=== PATIENT | male | born 1980 | race Caucasian/White ===

== ENCOUNTER 2018-06-02 16:10 | Inpatient (IN) | payer MEDICAID ==
[2018-06-02] MEDS: CEFTRIAXONE 1 GM/50 ML (PMX) 50 ML IVPB (17:09)
[2018-06-02] MEDS: SODIUM CHLORIDE 0.9% 1L BAG IV* (17:10)
[2018-06-02] MEDS: ACETAMINOPHEN 500 MG TAB PO (17:10)
[2018-06-02 17:15] LABS: ADD MAN DIFF? NO
[2018-06-02 17:19] LABS: BASOPHILS % 0.3 % (0.0-2.0); HEMATOCRIT 41.9 % (42.0-52.0); HEMOGLOBIN 12.8 g/dl (14.0-18.0); LYMPHOCYTES # 0.9 10^3/ul (0.8-2.9); LYMPHOCYTES % 8.2 % (15.0-51.0); MEAN CORPUSCULAR HEMOGLOBIN 27.1 pg (29.0-33.0); MEAN CORPUSCULAR HGB CONC 30.5 g/dl (32.0-37.0); MEAN CORPUSCULAR VOLUME 88.6 fl (82.0-101.0); MEAN PLATELET VOLUME 10.4 fl (7.4-10.4); MONOCYTE # 0.8 10^3/ul (0.3-0.9); MONOCYTES % 7.3 % (0.0-11.0); NEUTROPHIL # 8.8 10^3/ul (1.6-7.5); NEUTROPHILS % 83.1 % (39.0-77.0); PLATELET COUNT 170 10^3/UL (140-415); RED BLOOD COUNT 4.73 10^6/ul (4.70-6.10); RED CELL DISTRIBUTION WIDTH 16.6 % (11.5-14.5)
[2018-06-02 17:19] LABS: WHITE BLOOD COUNT 10.6 10^3/ul (4.8-10.8)
[2018-06-02 17:39] LABS: LACTIC ACID 1.8 mmol/L (0.5-2.0)
[2018-06-02 17:40] LABS: INR 1.53; PROTIME 18.5 Sec (11.9-14.9); PT RATIO 1.4
[2018-06-02 17:41] LABS: PARTIAL THROMBOPLASTIN TIME 37.6 Sec (23.0-35.0)
[2018-06-02 17:42] LABS: ALANINE AMINOTRANSFERASE 22 IU/L (13-69); ALKALINE PHOSPHATASE 51 IU/L (42-121); ANION GAP 9 (5-13); ASPARTATE AMINO TRANSFERASE 25 IU/L (15-46); BILIRUBIN,INDIRECT 0.4 mg/dl (0-1.1); BILIRUBIN,TOTAL 0.4 mg/dl (0.2-1.3); BLOOD UREA NITROGEN 18 mg/dl (7-20); CALCIUM 8.7 mg/dl (8.4-10.2); CARBON DIOXIDE 32 mmol/L (21-31); CHLORIDE 93 mmol/L (97-110); CREATININE 1.18 mg/dl (0.61-1.24); Estimated GFR > 60 mL/min (>60); GLUCOSE 116 mg/dl (70-220); POTASSIUM 4.6 mmol/L (3.5-5.1); SODIUM 134 mmol/L (135-144)
[2018-06-02] MEDS: AZITHROMYCIN 500MG/NS (PMX) 250 ML IV (17:47)
[2018-06-02 17:53] LABS: TROPONIN-I 0.025 ng/ml (0.000-0.120)
[2018-06-02 17:57] LABS: AADO2 Arterial 83.9 mmHg (7.0-24.0); Allen Test ACCEPTAB; Arterial Base Excess 3.8 mmol/L (-3.0-3); Arterial Blood Gas Oxygen Sat 91.3 mmHG (95.0-98.0); Arterial COHb 1.5 % (0.0-3.0); Arterial Fraction of Oxyhgb 89.7 % (93.0-99.0); Arterial HCO3 30.8 mmol/L (22.0-26.0); Arterial MetHb 0.2 % (0.0-1.5); Arterial pCO2 56.8 mmhg (35-45); Blood Gas IEPAP 20/8; Blood Gas PS 15; MODE MASK - BIPAP; Site Right Radial
[2018-06-02] MEDS ORDERED: ACETAMINOPHEN 325 MG TAB PO (18:30)
[2018-06-02] MEDS ORDERED: ONDANSETRON 4 MG INJ IV ×2 (18:30→19:00)
[2018-06-02] MEDS ORDERED: ALBUTEROL/IPRATROPIUM (NEB) 3 ML AMP HHN (19:00)
[2018-06-02] MEDS ORDERED: NACL 0.9% 3 ML SYG IV (19:00)
[2018-06-02] MEDS ORDERED: LORAZEPAM 2 MG INJ IV (19:30)
[2018-06-02 20:34] LABS: PARTIAL THROMBOPLASTIN TIME 38.8 Sec (23.0-35.0)
[2018-06-02] MEDS: NICOTINE (21 MG/24 HR) PATCH TRANSDERM (22:04)
[2018-06-02 22:31] LABS: LACTIC ACID 1.2 mmol/L (0.5-2.0)
[2018-06-03] MEDS: HEPARIN 5,000 UNIT/1 ML VIAL SC ×4 (03:30→21:30)
[2018-06-03] MEDS: PANTOPRAZOLE 40 MG INJ IV (05:10)
[2018-06-03] MEDS: ACETYLCYSTEINE 20% 4 ML VIAL NEB ×5 (06:08→19:58)
[2018-06-03 08:42] LABS: ADD MAN DIFF? NO
[2018-06-03 08:45] LABS: WHITE BLOOD COUNT 9.4 10^3/ul (4.8-10.8)
[2018-06-03 08:45] LABS: ABNORMAL IP MESSAGE 1; BASOPHILS % 0.2 % (0.0-2.0); EOSINOPHILS % 0.1 % (0.0-7.0); HEMATOCRIT 39.3 % (42.0-52.0); LYMPHOCYTES # 0.6 10^3/ul (0.8-2.9); LYMPHOCYTES % 6.2 % (15.0-51.0); MEAN CORPUSCULAR HEMOGLOBIN 27.1 pg (29.0-33.0); MEAN CORPUSCULAR HGB CONC 30.5 g/dl (32.0-37.0); MEAN CORPUSCULAR VOLUME 88.9 fl (82.0-101.0); MEAN PLATELET VOLUME 10.5 fl (7.4-10.4); MONOCYTE # 0.7 10^3/ul (0.3-0.9); MONOCYTES % 7.4 % (0.0-11.0); NEUTROPHILS % 85.4 % (39.0-77.0); PLATELET COUNT 149 10^3/UL (140-415); POSITIVE DIFF @See below; RED BLOOD COUNT 4.42 10^6/ul (4.70-6.10); RED CELL DISTRIBUTION WIDTH 16.6 % (11.5-14.5)
[2018-06-03] MEDS: NICOTINE (21 MG/24 HR) PATCH TRANSDERM (08:55)
[2018-06-03 09:16] LABS: ALANINE AMINOTRANSFERASE 20 IU/L (13-69); ALBUMIN 3.6 g/dl (3.3-4.9); ALBUMIN/GLOBULIN RATIO 0.92; ALKALINE PHOSPHATASE 65 IU/L (42-121); ANION GAP 7 (5-13); ASPARTATE AMINO TRANSFERASE 23 IU/L (15-46); BILIRUBIN,INDIRECT 0.3 mg/dl (0-1.1); BILIRUBIN,TOTAL 0.3 mg/dl (0.2-1.3); BLOOD UREA NITROGEN 18 mg/dl (7-20); CALCIUM 8.3 mg/dl (8.4-10.2); CARBON DIOXIDE 30 mmol/L (21-31); CHLORIDE 99 mmol/L (97-110); CHOL/HDL RATIO 5.2 RATIO; CHOLESTEROL 104 mg/dl (100-200); CREATININE 0.94 mg/dl (0.61-1.24); Estimated GFR > 60 mL/min (>60); GLUCOSE 102 mg/dl (70-220); HDL CHOLESTEROL 20 mg/dl (28-63); LDL CHOLESTEROL,CALCULATED 61 mg/dl; PHOSPHORUS 2.6 mg/dl (2.5-4.9); POTASSIUM 4.4 mmol/L (3.5-5.1); SODIUM 136 mmol/L (135-144); TOTAL PROTEIN 7.5 g/dl (6.1-8.1); TRIGLYCERIDES 116 mg/dl (0-149)
[2018-06-03] MEDS: CEFTRIAXONE 1 GM/50 ML (PMX) 50 ML IVPB (12:02)
[2018-06-03] MEDS: ALBUTEROL/IPRATROPIUM (NEB) 3 ML AMP HHN ×2 (13:24→19:58)
[2018-06-03] MEDS: AZITHROMYCIN 500MG/NS (PMX) 250 ML IVPB (14:27)
[2018-06-03] MEDS: METHYLPREDNISOLONE 40 MG INJ IV ×2 (14:52→21:22)
[2018-06-03] MEDS: ACETAMINOPHEN 325 MG TAB PO (18:01)
[2018-06-04] MEDS: LEVALBUTEROL (NEB) 0.63 MG/3 ML AMP HHN ×4 (01:30→20:03)
[2018-06-04] MEDS: ACETYLCYSTEINE 20% 4 ML VIAL NEB ×4 (01:30→20:04)
[2018-06-04] MEDS: IPRATROPIUM (NEB) 0.5 MG/2.5 ML AMP HHN ×4 (01:30→20:03)
[2018-06-04] MEDS: PANTOPRAZOLE 40 MG INJ IV (05:19)
[2018-06-04] MEDS: METHYLPREDNISOLONE 40 MG INJ IV ×3 (05:20→21:23)
[2018-06-04] MEDS: HEPARIN 5,000 UNIT/1 ML VIAL SC ×3 (05:26→21:29)
[2018-06-04 06:29] LABS: Allen Test ACCEPTAB; Arterial Base Excess 1.9 mmol/L (-3.0-3); Arterial COHb 0.5 % (0.0-3.0); Arterial Fraction of Oxyhgb 97.4 % (93.0-99.0); Arterial HCO3 31.3 mmol/L (22.0-26.0); Arterial MetHb 0.1 % (0.0-1.5); Arterial pCO2 73.1 mmhg (35-45); Blood Gas PS 15; MODE MASK - BIPAP; Site Right Radial
[2018-06-04] MEDS: NICOTINE (21 MG/24 HR) PATCH TRANSDERM (08:45)
[2018-06-04 10:00] LABS: AADO2 Arterial 214.5 mmHg (7.0-24.0); Allen Test ACCEPTAB; Arterial Base Excess 4.9 mmol/L (-3.0-3); Arterial Blood Gas Oxygen Sat 92.9 mmHG (95.0-98.0); Arterial COHb 0.4 % (0.0-3.0); Arterial Fraction of Oxyhgb 92.4 % (93.0-99.0); Arterial MetHb 0.1 % (0.0-1.5); Blood Gas IEPAP 24/8; Blood Gas PS 16; MODE MASK - BIPAP; Site Right Radial
[2018-06-04 10:18] LABS: ADD MAN DIFF? NO
[2018-06-04 10:37] LABS: ANION GAP 8 (5-13); BLOOD UREA NITROGEN 17 mg/dl (7-20); CARBON DIOXIDE 32 mmol/L (21-31); CHLORIDE 99 mmol/L (97-110); CREATININE 0.84 mg/dl (0.61-1.24); Estimated GFR > 60 mL/min (>60); GLUCOSE 139 mg/dl (70-220); MAGNESIUM 2.6 mg/dl (1.7-2.5); PHOSPHORUS 3.6 mg/dl (2.5-4.9); POTASSIUM 4.8 mmol/L (3.5-5.1); SODIUM 139 mmol/L (135-144)
[2018-06-04 10:44] LABS: ABNORMAL IP MESSAGE 1; BASOPHILS % 0.3 % (0.0-2.0); HEMATOCRIT 43.3 % (42.0-52.0); HEMOGLOBIN 13.1 g/dl (14.0-18.0); LYMPHOCYTES # 0.5 10^3/ul (0.8-2.9); LYMPHOCYTES % 5.4 % (15.0-51.0); MEAN CORPUSCULAR HEMOGLOBIN 27.1 pg (29.0-33.0); MEAN CORPUSCULAR HGB CONC 30.3 g/dl (32.0-37.0); MEAN CORPUSCULAR VOLUME 89.6 fl (82.0-101.0); MEAN PLATELET VOLUME 10.5 fl (7.4-10.4); MONOCYTE # 0.3 10^3/ul (0.3-0.9); MONOCYTES % 3.4 % (0.0-11.0); NEUTROPHIL # 8.7 10^3/ul (1.6-7.5); NEUTROPHILS % 89.7 % (39.0-77.0); PLATELET COUNT 177 10^3/UL (140-415); POSITIVE DIFF @See below; RED BLOOD COUNT 4.83 10^6/ul (4.70-6.10); RED CELL DISTRIBUTION WIDTH 16.4 % (11.5-14.5)
[2018-06-04 10:44] LABS: WHITE BLOOD COUNT 9.7 10^3/ul (4.8-10.8)
[2018-06-04] MEDS: CEFTRIAXONE 1 GM/50 ML (PMX) 50 ML IVPB (11:15)
[2018-06-04] MEDS: AZITHROMYCIN 500MG/NS (PMX) 250 ML IVPB (13:15)
[2018-06-05] MEDS: IPRATROPIUM (NEB) 0.5 MG/2.5 ML AMP HHN ×4 (01:07→19:34)
[2018-06-05] MEDS: LEVALBUTEROL (NEB) 0.63 MG/3 ML AMP HHN ×4 (01:07→19:34)
[2018-06-05] MEDS: ACETYLCYSTEINE 20% 4 ML VIAL NEB ×4 (01:08→19:34)
[2018-06-05] MEDS: PANTOPRAZOLE 40 MG INJ IV (05:36)
[2018-06-05] MEDS: METHYLPREDNISOLONE 40 MG INJ IV ×3 (05:36→21:00)
[2018-06-05] MEDS: HEPARIN 5,000 UNIT/1 ML VIAL SC ×3 (05:41→21:03)
[2018-06-05 05:46] LABS: ADD MAN DIFF? NO
[2018-06-05 05:48] LABS: BASOPHILS % 0.1 % (0.0-2.0); HEMATOCRIT 41.4 % (42.0-52.0); HEMOGLOBIN 12.7 g/dl (14.0-18.0); LYMPHOCYTES # 0.9 10^3/ul (0.8-2.9); LYMPHOCYTES % 8.7 % (15.0-51.0); MEAN CORPUSCULAR HGB CONC 30.7 g/dl (32.0-37.0); MEAN CORPUSCULAR VOLUME 88.1 fl (82.0-101.0); MONOCYTE # 0.5 10^3/ul (0.3-0.9); MONOCYTES % 4.7 % (0.0-11.0); NEUTROPHIL # 8.4 10^3/ul (1.6-7.5); NEUTROPHILS % 85.3 % (39.0-77.0); NUCLEATED RED BLOOD CELLS% 0.2 /100WBC (0.0-0.0); PLATELET COUNT 213 10^3/UL (140-415); RED CELL DISTRIBUTION WIDTH 16.3 % (11.5-14.5)
[2018-06-05 05:48] LABS: WHITE BLOOD COUNT 9.9 10^3/ul (4.8-10.8)
[2018-06-05 06:15] LABS: ANION GAP 7 (5-13); BLOOD UREA NITROGEN 26 mg/dl (7-20); CALCIUM 9.2 mg/dl (8.4-10.2); CARBON DIOXIDE 35 mmol/L (21-31); CHLORIDE 98 mmol/L (97-110); Estimated GFR > 60 mL/min (>60); GLUCOSE 130 mg/dl (70-220); MAGNESIUM 2.6 mg/dl (1.7-2.5); PHOSPHORUS 3.8 mg/dl (2.5-4.9); POTASSIUM 4.5 mmol/L (3.5-5.1); SODIUM 140 mmol/L (135-144)
[2018-06-05 07:52] LABS: AADO2 Arterial 205.1 mmHg (7.0-24.0); Allen Test ACCEPTAB; Arterial Base Excess 3.9 mmol/L (-3.0-3); Arterial Blood Gas Oxygen Sat 97.3 mmHG (95.0-98.0); Arterial COHb 0.3 % (0.0-3.0); Arterial Fraction of Oxyhgb 96.9 % (93.0-99.0); Arterial HCO3 29.6 mmol/L (22.0-26.0); Arterial MetHb 0.1 % (0.0-1.5); Arterial pCO2 48.9 mmhg (35-45); Blood Gas IEPAP 24/8; Blood Gas PS 16; MODE MASK - BIPAP; Site Right Radial
[2018-06-05] MEDS: NICOTINE (21 MG/24 HR) PATCH TRANSDERM (10:43)
[2018-06-05] MEDS: FUROSEMIDE 20 MG INJ IV ×2 (10:45→18:53)
[2018-06-05] MEDS: CEFTRIAXONE 1 GM/50 ML (PMX) 50 ML IVPB (11:43)
[2018-06-05] MEDS: AZITHROMYCIN 500MG/NS (PMX) 250 ML IVPB (12:32)
[2018-06-06] MEDS: IPRATROPIUM (NEB) 0.5 MG/2.5 ML AMP HHN ×4 (01:34→19:31)
[2018-06-06] MEDS: ACETYLCYSTEINE 20% 4 ML VIAL NEB ×4 (01:34→19:31)
[2018-06-06] MEDS: LEVALBUTEROL (NEB) 0.63 MG/3 ML AMP HHN ×4 (01:34→19:31)
[2018-06-06] MEDS: FUROSEMIDE 20 MG INJ IV ×2 (06:10→18:28)
[2018-06-06] MEDS: METHYLPREDNISOLONE 40 MG INJ IV ×3 (06:10→21:16)
[2018-06-06] MEDS: PANTOPRAZOLE 40 MG INJ IV (06:10)
[2018-06-06 06:23] LABS: AADO2 Arterial 205.6 mmHg (7.0-24.0); Allen Test ACCEPTAB; Arterial Base Excess 4.9 mmol/L (-3.0-3); Arterial Blood Gas Oxygen Sat 96.2 mmHG (95.0-98.0); Arterial COHb 0.3 % (0.0-3.0); Arterial Fraction of Oxyhgb 95.9 % (93.0-99.0); Arterial HCO3 31.3 mmol/L (22.0-26.0); Arterial MetHb 0 % (0.0-1.5); Arterial pCO2 53.3 mmhg (35-45); Blood Gas IEPAP 24/8; MODE MASK - BIPAP; Site Right Radial
[2018-06-06] MEDS: HEPARIN 5,000 UNIT/1 ML VIAL SC ×3 (06:23→21:37)
[2018-06-06 06:24] LABS: ADD MAN DIFF? NO
[2018-06-06 06:31] LABS: BASOPHILS % 0.1 % (0.0-2.0); HEMATOCRIT 41.6 % (42.0-52.0); HEMOGLOBIN 12.7 g/dl (14.0-18.0); LYMPHOCYTES # 1.1 10^3/ul (0.8-2.9); LYMPHOCYTES % 12.3 % (15.0-51.0); MEAN CORPUSCULAR HEMOGLOBIN 26.8 pg (29.0-33.0); MEAN CORPUSCULAR HGB CONC 30.5 g/dl (32.0-37.0); MEAN CORPUSCULAR VOLUME 87.9 fl (82.0-101.0); MEAN PLATELET VOLUME 10.6 fl (7.4-10.4); MONOCYTE # 0.6 10^3/ul (0.3-0.9); NEUTROPHIL # 6.9 10^3/ul (1.6-7.5); NEUTROPHILS % 78.8 % (39.0-77.0); NUCLEATED RED BLOOD CELLS% 0.2 /100WBC (0.0-0.0); PLATELET COUNT 219 10^3/UL (140-415); RED BLOOD COUNT 4.73 10^6/ul (4.70-6.10); RED CELL DISTRIBUTION WIDTH 16.4 % (11.5-14.5)
[2018-06-06 06:31] LABS: WHITE BLOOD COUNT 8.8 10^3/ul (4.8-10.8)
[2018-06-06 06:44] LABS: ANION GAP 9 (5-13); BLOOD UREA NITROGEN 33 mg/dl (7-20); CALCIUM 9.2 mg/dl (8.4-10.2); CARBON DIOXIDE 32 mmol/L (21-31); CHLORIDE 100 mmol/L (97-110); CREATININE 0.93 mg/dl (0.61-1.24); Estimated GFR > 60 mL/min (>60); GLUCOSE 113 mg/dl (70-220); POTASSIUM 4.8 mmol/L (3.5-5.1); SODIUM 141 mmol/L (135-144)
[2018-06-06] MEDS: NICOTINE (21 MG/24 HR) PATCH TRANSDERM (09:05)
[2018-06-06] MEDS: AZITHROMYCIN 500MG/NS (PMX) 250 ML IVPB (12:10)
[2018-06-06] MEDS: CEFTRIAXONE 1 GM/50 ML (PMX) 50 ML IVPB (12:10)
[2018-06-07] MEDS: IPRATROPIUM (NEB) 0.5 MG/2.5 ML AMP HHN ×4 (02:14→20:11)
[2018-06-07] MEDS: LEVALBUTEROL (NEB) 0.63 MG/3 ML AMP HHN ×4 (02:14→20:11)
[2018-06-07] MEDS: ACETYLCYSTEINE 20% 4 ML VIAL NEB ×4 (02:14→20:11)
[2018-06-07] MEDS: PANTOPRAZOLE 40 MG INJ IV (05:00)
[2018-06-07] MEDS: METHYLPREDNISOLONE 40 MG INJ IV ×2 (05:00→21:07)
[2018-06-07] MEDS: FUROSEMIDE 20 MG INJ IV ×2 (05:01→17:31)
[2018-06-07] MEDS: HEPARIN 5,000 UNIT/1 ML VIAL SC ×3 (05:07→21:19)
[2018-06-07] MEDS: NICOTINE (21 MG/24 HR) PATCH TRANSDERM (08:36)
[2018-06-08] MEDS: IPRATROPIUM (NEB) 0.5 MG/2.5 ML AMP HHN ×4 (01:33→20:35)
[2018-06-08] MEDS: ACETYLCYSTEINE 20% 4 ML VIAL NEB ×4 (01:33→20:35)
[2018-06-08] MEDS: LEVALBUTEROL (NEB) 0.63 MG/3 ML AMP HHN ×4 (01:33→20:35)
[2018-06-08] MEDS: PANTOPRAZOLE 40 MG INJ IV (05:28)
[2018-06-08] MEDS: HEPARIN 5,000 UNIT/1 ML VIAL SC ×3 (05:35→21:39)
[2018-06-08 07:07] LABS: ABNORMAL IP MESSAGE 1; HEMATOCRIT 48.3 % (42.0-52.0); HEMOGLOBIN 14.9 g/dl (14.0-18.0); MEAN CORPUSCULAR HEMOGLOBIN 26.6 pg (29.0-33.0); MEAN CORPUSCULAR HGB CONC 30.8 g/dl (32.0-37.0); MEAN CORPUSCULAR VOLUME 86.3 fl (82.0-101.0); MEAN PLATELET VOLUME 10.7 fl (7.4-10.4); PLATELET COUNT 275 10^3/UL (140-415); POSITIVE DIFF @See below; RED CELL DISTRIBUTION WIDTH 16.4 % (11.5-14.5)
[2018-06-08 07:07] LABS: WHITE BLOOD COUNT 11.5 10^3/ul (4.8-10.8)
[2018-06-08 07:17] LABS: ADD MAN DIFF? YES
[2018-06-08 07:29] LABS: PHOSPHORUS 4.9 mg/dl (2.5-4.9)
[2018-06-08 07:29] LABS: MAGNESIUM 2.3 mg/dl (1.7-2.5)
[2018-06-08 07:35] LABS: ANION GAP 7 (5-13); BLOOD UREA NITROGEN 34 mg/dl (7-20); CALCIUM 9.1 mg/dl (8.4-10.2); CARBON DIOXIDE 32 mmol/L (21-31); CHLORIDE 98 mmol/L (97-110); CREATININE 0.87 mg/dl (0.61-1.24); Estimated GFR > 60 mL/min (>60); GLUCOSE 105 mg/dl (70-220); POTASSIUM 4.5 mmol/L (3.5-5.1); SODIUM 137 mmol/L (135-144)
[2018-06-08] MEDS: predniSONE 20 MG TAB PO (08:45)
[2018-06-08] MEDS: NICOTINE (21 MG/24 HR) PATCH TRANSDERM (08:45)
[2018-06-08] MEDS: FUROSEMIDE 20 MG TAB PO (08:45)
[2018-06-08 10:01] LABS: BAND NEUTROPHILS #M 0.3 10^3/ul (0.0-0.6); BAND NEUTROPHILS % (M) 3 % (0-4); ERYTHROBLAST% (NRBC) (M) 1 % (0-0); GIANT THROMBO% (M) 1 % (0-0); LYMPHOCYTES #M 1.7 10^3/ul (0.8-2.9); LYMPHOCYTES % (M) 15 % (15-51); METAMYELOCYTES #M 0.2 10^3/ul (0.0-0.0); METAMYELOCYTES %M 2 % (0-0); MONOCYTE #M 0.4 10^3/ul (0.3-0.9); MONOCYTES % (M) 4 % (0-11); MYELOCYTES #M 0.5 10^3/ul (0.0-0.0); MYELOCYTES % (M) 5 % (0-0); PLATELET ESTIMATE NORMAL; POIKILOCYTOSIS 1+ (0-0); REACTIVE LYMPHOCYTES #M 0.1 10^3/ul (0.0-0.0); REACTIVE LYMPHOCYTES% (M) 1 % (0-0); SEG NEUT #M 8.1 10^3/ul (1.6-7.5); SEGMENTED NEUTROPHILS (M) % 70 % (39-77); SMUDGE%M 23 % (0-0)
[2018-06-09] MEDS: LEVALBUTEROL (NEB) 0.63 MG/3 ML AMP HHN ×4 (02:19→20:39)
[2018-06-09] MEDS: IPRATROPIUM (NEB) 0.5 MG/2.5 ML AMP HHN ×4 (02:19→20:39)
[2018-06-09] MEDS: ACETYLCYSTEINE 20% 4 ML VIAL NEB ×4 (02:23→20:39)
[2018-06-09] MEDS: PANTOPRAZOLE (EC) 40 MG TAB PO (05:12)
[2018-06-09] MEDS: HEPARIN 5,000 UNIT/1 ML VIAL SC ×3 (05:17→21:33)
[2018-06-09] MEDS: predniSONE 20 MG TAB PO (09:33)
[2018-06-09] MEDS: FUROSEMIDE 20 MG TAB PO (09:33)
[2018-06-09] MEDS: NICOTINE (21 MG/24 HR) PATCH TRANSDERM (09:33)
[2018-06-10] MEDS: ACETYLCYSTEINE 20% 4 ML VIAL NEB ×4 (01:52→20:00)
[2018-06-10] MEDS: LEVALBUTEROL (NEB) 0.63 MG/3 ML AMP HHN ×4 (01:52→20:00)
[2018-06-10] MEDS: IPRATROPIUM (NEB) 0.5 MG/2.5 ML AMP HHN ×4 (01:52→20:00)
[2018-06-10] MEDS: PANTOPRAZOLE (EC) 40 MG TAB PO (05:26)
[2018-06-10] MEDS: HEPARIN 5,000 UNIT/1 ML VIAL SC ×3 (05:55→21:25)
[2018-06-10] MEDS: NICOTINE (21 MG/24 HR) PATCH TRANSDERM (10:11)
[2018-06-10] MEDS: FUROSEMIDE 20 MG TAB PO (10:12)
== END 2018-06-10 21:25 | disposition home or self-care (01) | DRG 189 ==
LOC: TEL 18:27 → ICU 06-04 10:19 → TEL 06-05 15:20 → E/R 16:10
PROC: 5A09557 Assistance with Respiratory Ventilation, Greater than 96 Consecutive Hours, Continuous Positive Airway Pressure (ICD-10-PCS; principal; 2018-06-02)
DX: J96.22 Acute and chronic respiratory failure with hypercapnia (principal); J18.9 Pneumonia, unspecified organism; J44.0 Chronic obstructive pulmonary disease with (acute) lower respiratory infection; E66.2 Morbid (severe) obesity with alveolar hypoventilation; Z68.43 Body mass index [BMI] 50.0-59.9, adult; E87.2 Acidosis; L03.115 Cellulitis of right lower limb; R78.81 Bacteremia; J96.21 Acute and chronic respiratory failure with hypoxia; I87.8 Other specified disorders of veins; R73.03 Prediabetes; Z72.0 Tobacco use; J20.9 Acute bronchitis, unspecified; B95.8 Unspecified staphylococcus as the cause of diseases classified elsewhere; G47.33 Obstructive sleep apnea (adult) (pediatric)
CPT/HCPCS: 36415; 36600; 71045; 71250; 73700; 80048; 80053; 80061; 82803; 83036; 83605; 83735; 84100; 84443; 84484; 85025; 85610; 85730; 87040-91; 87081; 87400; 93005; 93306; 93971; 94640; 94660; 94760; 96374; 96375; 97162; 99291-25

== ENCOUNTER 2018-06-13 21:08 | Inpatient (IN) | payer MEDICAID, OTHER ==
[2018-06-14] MEDS: SODIUM CHLORIDE 0.9% 1L BAG IV* (01:06)
[2018-06-14 01:21] LABS: ADD MAN DIFF? NO
[2018-06-14 01:23] LABS: BASOPHILS % 0.3 % (0.0-2.0); EOSINOPHILS # 0.1 10^3/ul (0.0-0.5); HEMATOCRIT 46.3 % (42.0-52.0); HEMOGLOBIN 14.3 g/dl (14.0-18.0); LYMPHOCYTES % 25.3 % (15.0-51.0); MEAN CORPUSCULAR HEMOGLOBIN 27.1 pg (29.0-33.0); MEAN CORPUSCULAR HGB CONC 30.9 g/dl (32.0-37.0); MEAN CORPUSCULAR VOLUME 87.9 fl (82.0-101.0); MEAN PLATELET VOLUME 11.3 fl (7.4-10.4); MONOCYTE # 0.7 10^3/ul (0.3-0.9); MONOCYTES % 9.5 % (0.0-11.0); NEUTROPHIL # 4.9 10^3/ul (1.6-7.5); NEUTROPHILS % 62.7 % (39.0-77.0); PLATELET COUNT 213 10^3/UL (140-415); RED BLOOD COUNT 5.27 10^6/ul (4.70-6.10); RED CELL DISTRIBUTION WIDTH 16.6 % (11.5-14.5)
[2018-06-14 01:23] LABS: WHITE BLOOD COUNT 7.8 10^3/ul (4.8-10.8)
[2018-06-14 01:29] LABS: ADD UMIC NO; UR ASCORBIC ACID NEGATIVE (NEGATIVE); UR BILIRUBIN (Dip) NEGATIVE (NEGATIVE); UR BLOOD (Dip) NEGATIVE (NEGATIVE); UR CLARITY SLIGHTLY CLOUDY (CLEAR); UR COLOR YELLOW (YELLOW); UR GLUCOSE (Dip) NEGATIVE (NEGATIVE); UR KETONES (Dip) NEGATIVE (NEGATIVE); UR LEUKOCYTE ESTERASE (Dip) NEGATIVE Leu/ul (NEGATIVE); UR NITRITE (Dip) NEGATIVE (NEGATIVE); UR RBC 0 /HPF (0-5); UR SPECIFIC GRAVITY (Dip) 1.025 (1.003-1.030); UR SQUAMOUS EPITHELIAL CELL FEW /HPF (FEW); UR TOTAL PROTEIN (Dip) NEGATIVE (NEGATIVE); UR UROBILINOGEN (Dip) 1+ mg/dL (NEGATIVE); UR WBC 1 /HPF (0-5)
[2018-06-14 01:42] LABS: ALANINE AMINOTRANSFERASE 50 IU/L (13-69); ALBUMIN/GLOBULIN RATIO 0.97; ALKALINE PHOSPHATASE 79 IU/L (42-121); ANION GAP 10 (5-13); ASPARTATE AMINO TRANSFERASE 23 IU/L (15-46); BILIRUBIN,INDIRECT 0.2 mg/dl (0-1.1); BILIRUBIN,TOTAL 0.2 mg/dl (0.2-1.3); BLOOD UREA NITROGEN 22 mg/dl (7-20); CARBON DIOXIDE 31 mmol/L (21-31); CHLORIDE 99 mmol/L (97-110); CREATININE 1.16 mg/dl (0.61-1.24); Estimated GFR > 60 mL/min (>60); GLUCOSE 109 mg/dl (70-220); INR 1.22; PARTIAL THROMBOPLASTIN TIME 29.7 Sec (23.0-35.0); PROTIME 15.5 Sec (11.9-14.9); PT RATIO 1.2; SODIUM 140 mmol/L (135-144); TOTAL PROTEIN 8.1 g/dl (6.1-8.1)
[2018-06-14 01:42] LABS: LACTIC ACID 1.1 mmol/L (0.5-2.0)
[2018-06-14 01:52] LABS: TROPONIN-I < 0.012 ng/ml (0.000-0.120)
[2018-06-14] MEDS: PIPER-TAZO 3.375 GM IV (PMX) 100 ML IVPB (02:47)
[2018-06-14] MEDS: VANCOMYCIN 1 GM (PMX) 250 ML IVPB (03:28)
[2018-06-14] MEDS ORDERED: NACL 0.9% 3 ML SYG IV (06:00)
[2018-06-14] MEDS ORDERED: VANCOMYCIN IV PER PHARMACY XX (06:00)
[2018-06-14] MEDS ORDERED: HYDROCODONE/APAP (5/325) TAB PO (06:00)
[2018-06-14] MEDS ORDERED: ONDANSETRON 4 MG INJ IV (06:00)
[2018-06-14] MEDS ORDERED: ACETAMINOPHEN 325 MG TAB PO (06:00)
[2018-06-14] MEDS ORDERED: ALBUTEROL/IPRATROPIUM (NEB) 3 ML AMP HHN (06:00)
[2018-06-14] MEDS: ENOXAPARIN 40 MG/0.4 ML SYG SC (08:09)
[2018-06-14] MEDS: FUROSEMIDE 20 MG TAB PO (08:10)
[2018-06-14] MEDS: CEFEPIME 1GM/50 ML (PMX) 50 ML IVPB (08:12)
[2018-06-14] MEDS: NICOTINE (21 MG/24 HR) PATCH TRANSDERM (08:12)
[2018-06-14] MEDS: VANCOMYCIN HCL 2 GM in SOD CHLORIDE 0.9% 500 ML IVPB (10:03)
[2018-06-14] MEDS: VANCOMYCIN HCL 1.5 GM in SOD CHLORIDE 0.9% 250 ML IVPB (20:02)
[2018-06-15] MEDS: CEFEPIME 1GM/50 ML (PMX) 50 ML IVPB (00:59)
[2018-06-15 07:33] LABS: ADD MAN DIFF? NO
[2018-06-15 07:43] LABS: BASOPHILS % 0.4 % (0.0-2.0); EOSINOPHILS # 0.1 10^3/ul (0.0-0.5); EOSINOPHILS % 1.7 % (0.0-7.0); HEMATOCRIT 44.7 % (42.0-52.0); HEMOGLOBIN 13.9 g/dl (14.0-18.0); LYMPHOCYTES # 1.1 10^3/ul (0.8-2.9); LYMPHOCYTES % 20.8 % (15.0-51.0); MEAN CORPUSCULAR HGB CONC 31.1 g/dl (32.0-37.0); MONOCYTE # 0.5 10^3/ul (0.3-0.9); MONOCYTES % 9.4 % (0.0-11.0); NEUTROPHIL # 3.6 10^3/ul (1.6-7.5); NEUTROPHILS % 67.1 % (39.0-77.0); PLATELET COUNT 193 10^3/UL (140-415); RED BLOOD COUNT 5.14 10^6/ul (4.70-6.10); RED CELL DISTRIBUTION WIDTH 16.3 % (11.5-14.5)
[2018-06-15 07:43] LABS: WHITE BLOOD COUNT 5.4 10^3/ul (4.8-10.8)
[2018-06-15] MEDS: VANCOMYCIN HCL 1.5 GM in SOD CHLORIDE 0.9% 250 ML IVPB ×2 (07:59→20:29)
[2018-06-15] MEDS: FUROSEMIDE 20 MG TAB PO (08:00)
[2018-06-15] MEDS: NICOTINE (21 MG/24 HR) PATCH TRANSDERM (08:00)
[2018-06-15] MEDS: ENOXAPARIN 40 MG/0.4 ML SYG SC (08:02)
[2018-06-15 08:03] LABS: PHOSPHORUS 4.4 mg/dl (2.5-4.9)
[2018-06-15 08:05] LABS: ALANINE AMINOTRANSFERASE 45 IU/L (13-69); ALBUMIN 3.6 g/dl (3.3-4.9); ALBUMIN/GLOBULIN RATIO 0.92; ALKALINE PHOSPHATASE 52 IU/L (42-121); ANION GAP 3 (5-13); ASPARTATE AMINO TRANSFERASE 20 IU/L (15-46); BILIRUBIN,INDIRECT 0.4 mg/dl (0-1.1); BILIRUBIN,TOTAL 0.4 mg/dl (0.2-1.3); BLOOD UREA NITROGEN 14 mg/dl (7-20); CARBON DIOXIDE 30 mmol/L (21-31); CHLORIDE 101 mmol/L (97-110); CREATININE 0.83 mg/dl (0.61-1.24); Estimated GFR > 60 mL/min (>60); GLUCOSE 85 mg/dl (70-220); POTASSIUM 4.2 mmol/L (3.5-5.1); SODIUM 134 mmol/L (135-144); TOTAL PROTEIN 7.5 g/dl (6.1-8.1)
[2018-06-15 08:53] LABS: ERYTHROCYTE SEDIMENTATION RATE 24 mm/Hr (0-15)
[2018-06-15] MEDS: CEFEPIME 2GM/50 ML IVPB (23:17)
[2018-06-16] MEDS: VANCOMYCIN HCL 1.5 GM in SOD CHLORIDE 0.9% 250 ML IVPB ×3 (05:47→23:01)
[2018-06-16 06:57] LABS: ADD MAN DIFF? NO
[2018-06-16] MEDS ORDERED: METOPROLOL 5 MG INJ (07:00)
[2018-06-16] MEDS ORDERED: SEVOFLURANE 15 MIN (07:00)
[2018-06-16 07:01] LABS: WHITE BLOOD COUNT 4.8 10^3/ul (4.8-10.8)
[2018-06-16 07:01] LABS: BASOPHILS % 0.2 % (0.0-2.0); EOSINOPHILS # 0.1 10^3/ul (0.0-0.5); EOSINOPHILS % 1.9 % (0.0-7.0); HEMATOCRIT 43.9 % (42.0-52.0); HEMOGLOBIN 13.7 g/dl (14.0-18.0); LYMPHOCYTES # 1.3 10^3/ul (0.8-2.9); LYMPHOCYTES % 26.5 % (15.0-51.0); MEAN CORPUSCULAR HEMOGLOBIN 27.1 pg (29.0-33.0); MEAN CORPUSCULAR HGB CONC 31.2 g/dl (32.0-37.0); MEAN CORPUSCULAR VOLUME 86.8 fl (82.0-101.0); MEAN PLATELET VOLUME 11.5 fl (7.4-10.4); MONOCYTE # 0.5 10^3/ul (0.3-0.9); MONOCYTES % 10.6 % (0.0-11.0); NEUTROPHIL # 2.9 10^3/ul (1.6-7.5); NEUTROPHILS % 60.2 % (39.0-77.0); PLATELET COUNT 176 10^3/UL (140-415); RED BLOOD COUNT 5.06 10^6/ul (4.70-6.10); RED CELL DISTRIBUTION WIDTH 16.3 % (11.5-14.5)
[2018-06-16 07:27] LABS: PHOSPHORUS 5.6 mg/dl (2.5-4.9)
[2018-06-16 07:36] LABS: ANION GAP 11 (5-13); BLOOD UREA NITROGEN 18 mg/dl (7-20); CALCIUM 9.1 mg/dl (8.4-10.2); CARBON DIOXIDE 28 mmol/L (21-31); CHLORIDE 102 mmol/L (97-110); CREATININE 0.85 mg/dl (0.61-1.24); Estimated GFR > 60 mL/min (>60); GLUCOSE 87 mg/dl (70-220); POTASSIUM 4.2 mmol/L (3.5-5.1); SODIUM 141 mmol/L (135-144)
[2018-06-16] MEDS: ENOXAPARIN 40 MG/0.4 ML SYG SC (09:00)
[2018-06-16] MEDS: FUROSEMIDE 20 MG TAB PO (09:00)
[2018-06-16] MEDS: CEFEPIME 2GM/50 ML IVPB ×2 (11:07→20:41)
[2018-06-16] MEDS: NICOTINE (21 MG/24 HR) PATCH TRANSDERM (11:07)
[2018-06-16] MEDS: POLYMYXIN B 500000 UNIT INJ (17:44)
[2018-06-16] MEDS: BACITRACIN 50000 UNITS INJ (17:44)
[2018-06-16] MEDS ORDERED: MIDAZOLAM 1 MG/ML 2 ML INJ ×2 (18:01→18:29)
[2018-06-16] MEDS ORDERED: ROPIVACAINE 0.5 % 30 ML VIAL (18:02)
[2018-06-16] MEDS ORDERED: KETAMINE (50 MG/ML) 10 ML VIAL (18:29)
[2018-06-16] MEDS ORDERED: hydrALAzine 20 MG INJ (18:48)
[2018-06-16] MEDS ORDERED: FENTAnyl 50 MCG/ML VIAL (18:54)
[2018-06-16] MEDS ORDERED: LIDOCAINE 2% (SDV) 5 ML INJ (18:58)
[2018-06-16] MEDS ORDERED: PROPOFOL 20 ML (18:58)
[2018-06-16] MEDS ORDERED: hydrALAzine 20 MG INJ IV (19:30)
[2018-06-16] MEDS ORDERED: MEPERIDINE 25 MG INJ IV (19:30)
[2018-06-16] MEDS ORDERED: ONDANSETRON 4 MG INJ IV (19:30)
[2018-06-16] MEDS ORDERED: FENTAnyl 50 MCG/ML VIAL IV (19:30)
[2018-06-16] MEDS ORDERED: HYDROmorphONE 1 MG/5 ML IV SYRINGE IV ×2 (19:30)
[2018-06-16] MEDS ORDERED: DIPHENHYDRAMINE 50 MG INJ IV (19:30)
[2018-06-16] MEDS ORDERED: LABETALOL HCL 20MG INJ IV (19:30)
[2018-06-16 22:37] LABS: VANCOMYCIN,TROUGH 15.2 ug/ml (10.0-20.0)
[2018-06-17] MEDS: VANCOMYCIN HCL 1.5 GM in SOD CHLORIDE 0.9% 250 ML IVPB ×3 (05:43→22:08)
[2018-06-17 06:02] LABS: ADD MAN DIFF? NO
[2018-06-17 06:10] LABS: WHITE BLOOD COUNT 5.4 10^3/ul (4.8-10.8)
[2018-06-17 06:10] LABS: BASOPHILS % 0.4 % (0.0-2.0); EOSINOPHILS # 0.1 10^3/ul (0.0-0.5); EOSINOPHILS % 1.5 % (0.0-7.0); HEMATOCRIT 43.2 % (42.0-52.0); LYMPHOCYTES # 1.2 10^3/ul (0.8-2.9); MEAN CORPUSCULAR HEMOGLOBIN 27.8 pg (29.0-33.0); MEAN CORPUSCULAR HGB CONC 32.4 g/dl (32.0-37.0); MEAN CORPUSCULAR VOLUME 85.9 fl (82.0-101.0); MEAN PLATELET VOLUME 10.9 fl (7.4-10.4); MONOCYTE # 0.5 10^3/ul (0.3-0.9); MONOCYTES % 8.9 % (0.0-11.0); NEUTROPHIL # 3.6 10^3/ul (1.6-7.5); NEUTROPHILS % 66.5 % (39.0-77.0); PLATELET COUNT 196 10^3/UL (140-415); RED BLOOD COUNT 5.03 10^6/ul (4.70-6.10); RED CELL DISTRIBUTION WIDTH 16.4 % (11.5-14.5)
[2018-06-17 06:27] LABS: PHOSPHORUS 4.2 mg/dl (2.5-4.9)
[2018-06-17 06:27] LABS: MAGNESIUM 1.7 mg/dl (1.7-2.5)
[2018-06-17 06:37] LABS: ANION GAP 11 (5-13); BLOOD UREA NITROGEN 17 mg/dl (7-20); CALCIUM 9.1 mg/dl (8.4-10.2); CARBON DIOXIDE 27 mmol/L (21-31); CHLORIDE 101 mmol/L (97-110); CREATININE 0.85 mg/dl (0.61-1.24); Estimated GFR > 60 mL/min (>60); GLUCOSE 91 mg/dl (70-220); SODIUM 139 mmol/L (135-144)
[2018-06-17] MEDS: FUROSEMIDE 20 MG TAB PO (09:00)
[2018-06-17] MEDS: NICOTINE (21 MG/24 HR) PATCH TRANSDERM (09:00)
[2018-06-17] MEDS: ENOXAPARIN 40 MG/0.4 ML SYG SC (09:08)
[2018-06-17] MEDS: CEFEPIME 2GM/50 ML IVPB ×2 (10:44→20:59)
[2018-06-17] MEDS ORDERED: LIDOCAINE 1% (MPF) 5 ML VIAL SC (12:30)
[2018-06-18 05:32] LABS: ADD MAN DIFF? NO
[2018-06-18] MEDS: VANCOMYCIN HCL 1.5 GM in SOD CHLORIDE 0.9% 250 ML IVPB (05:36)
[2018-06-18 05:46] LABS: WHITE BLOOD COUNT 4.7 10^3/ul (4.8-10.8)
[2018-06-18 05:46] LABS: BASOPHILS % 0.4 % (0.0-2.0); EOSINOPHILS # 0.1 10^3/ul (0.0-0.5); EOSINOPHILS % 1.7 % (0.0-7.0); HEMATOCRIT 42.4 % (42.0-52.0); HEMOGLOBIN 13.3 g/dl (14.0-18.0); LYMPHOCYTES # 1.2 10^3/ul (0.8-2.9); LYMPHOCYTES % 24.6 % (15.0-51.0); MEAN CORPUSCULAR HEMOGLOBIN 27.1 pg (29.0-33.0); MEAN CORPUSCULAR HGB CONC 31.4 g/dl (32.0-37.0); MEAN CORPUSCULAR VOLUME 86.4 fl (82.0-101.0); MEAN PLATELET VOLUME 10.5 fl (7.4-10.4); MONOCYTE # 0.6 10^3/ul (0.3-0.9); NEUTROPHIL # 2.8 10^3/ul (1.6-7.5); NEUTROPHILS % 60.9 % (39.0-77.0); PLATELET COUNT 176 10^3/UL (140-415); RED BLOOD COUNT 4.91 10^6/ul (4.70-6.10); RED CELL DISTRIBUTION WIDTH 16.2 % (11.5-14.5)
[2018-06-18 06:01] LABS: ANION GAP 8 (5-13); BLOOD UREA NITROGEN 19 mg/dl (7-20); CALCIUM 9.4 mg/dl (8.4-10.2); CARBON DIOXIDE 27 mmol/L (21-31); CHLORIDE 106 mmol/L (97-110); CREATININE 0.91 mg/dl (0.61-1.24); Estimated GFR > 60 mL/min (>60); GLUCOSE 92 mg/dl (70-220); POTASSIUM 4.2 mmol/L (3.5-5.1); SODIUM 141 mmol/L (135-144)
[2018-06-18 06:38] LABS: VANCOMYCIN,TROUGH 20.4 ug/ml (10.0-20.0)
[2018-06-18 06:41] LABS: PHOSPHORUS 4.7 mg/dl (2.5-4.9)
[2018-06-18 06:41] LABS: MAGNESIUM 1.9 mg/dl (1.7-2.5)
[2018-06-18] MEDS: CEFEPIME 2GM/50 ML IVPB ×2 (08:58→20:37)
[2018-06-18] MEDS: NICOTINE (21 MG/24 HR) PATCH TRANSDERM (08:59)
[2018-06-18] MEDS: FUROSEMIDE 20 MG TAB PO (08:59)
[2018-06-18] MEDS: ENOXAPARIN 40 MG/0.4 ML SYG SC (09:04)
[2018-06-18] MEDS: VANCOMYCIN HCL 1.25 GM in SOD CHLORIDE 0.9% 250 ML IVPB ×2 (13:53→22:22)
[2018-06-18] MEDS ORDERED: CYCLOBENZAPRINE 10 MG TAB PO ×2 (14:30)
[2018-06-18] MEDS: HYDROCODONE/APAP (5/325) TAB PO (20:37)
[2018-06-19] MEDS: VANCOMYCIN HCL 1.25 GM in SOD CHLORIDE 0.9% 250 ML IVPB ×2 (05:13→14:05)
[2018-06-19] MEDS: FUROSEMIDE 20 MG TAB PO (08:52)
[2018-06-19] MEDS: CEFEPIME 2GM/50 ML IVPB (08:53)
[2018-06-19] MEDS: NICOTINE (21 MG/24 HR) PATCH TRANSDERM (08:53)
[2018-06-19] MEDS: ENOXAPARIN 40 MG/0.4 ML SYG SC (08:54)
[2018-06-19] MEDS: DAKINS 0.0125%(1/40) 473 ML SOLUTION TP (10:58)
[2018-06-19 14:54] LABS: CREATININE 0.98 mg/dl (0.61-1.24)
[2018-06-19 14:54] LABS: BLOOD UREA NITROGEN 16 mg/dl (7-20)
[2018-06-19 14:59] LABS: VANCOMYCIN,TROUGH 14.1 ug/ml (10.0-20.0)
== END 2018-06-19 18:30 | disposition home health service (06) | DRG 571 ==
LOC: 5EC 06-14 03:50 → E/R 21:08 → 5EC 06-14 01:56
PROC: 0JBN0ZZ Excision of Right Lower Leg Subcutaneous Tissue and Fascia, Open Approach (ICD-10-PCS; principal; 2018-06-16 17:30)
DX: L03.115 Cellulitis of right lower limb (principal); Z68.43 Body mass index [BMI] 50.0-59.9, adult; L02.415 Cutaneous abscess of right lower limb; E66.01 Morbid (severe) obesity due to excess calories; G47.33 Obstructive sleep apnea (adult) (pediatric); J44.9 Chronic obstructive pulmonary disease, unspecified; I87.8 Other specified disorders of veins; R73.03 Prediabetes; Z72.0 Tobacco use
CPT/HCPCS: 36415; 71045; 73590; 73718; 80048; 80053; 80202; 81001; 81003; 82565; 83605; 83735; 84100; 84484; 84520; 85025; 85610; 85651; 85730; 86140; 87040-91; 87070; 87075; 87086; 87102; 93005; 93971; 99285-25

== ENCOUNTER 2018-07-22 23:03 | Emergency (ER) | payer MEDICAID ==
[2018-07-23] MEDS: FAMOTIDINE 20 MG TAB PO (02:33)
[2018-07-23] MEDS: predniSONE 20 MG TAB PO ×2 (02:34)
[2018-07-23] MEDS: DIPHENHYDRAMINE 50 MG INJ IM (02:35)
== END 2018-07-23 02:50 | disposition home or self-care (01) ==
LOC: FTE 23:03
DX: L50.0 Allergic urticaria (principal); F17.210 Nicotine dependence, cigarettes, uncomplicated
CPT/HCPCS: 96372; 99284-25